=== PATIENT | female | born 1965 | race Caucasian/White ===

== ENCOUNTER → 2018-04-16 | Outpatient (CLI) | payer OTHER ==
[~2018-04-16] MED LIST: ASPIRIN325 PO; AUGMENTIN 875-1 EACH PO; BENADRYL25 MG PO; CIMETIDINE800 MG PO; CLARITIN10 MG PO; COLACE100 MG PO; ESTRACE0.5 MG PO; FLOMAX0.4 MG PO; FLONASE 0.05%50 MCG NASAL; HEARTBURN RELI200 MG PO; IMITREX 50 MG T50 MG PO; MAXALT MLT ODT10 M1 PO; METAMUCIL1 EAC1 PO; MIRALAX17 G1 PO; MOBIC15 MG PO; NORCO 5-325 TA1 EACH PO; ONDANSETRON HCL4 M2 PO; PROVERA2.5 MG PO; SINGULAIR 10 MG10 M1 PO; TRAMADOL 50 MG50 MG PO; TYLENOL325 MG PO; XARELTO10 MG PO
[2018-04-16 11:06] LABS: ABSOLUTE BASOPHILS 0.1 thou/uL (0.0-0.2); ABSOLUTE EOSINOPHILS 0.2 thou/uL (0.0-0.7); ABSOLUTE LYMPHOCYTES 2.4 thou/uL (0.8-5.3); ABSOLUTE MONOCYTES 0.4 thou/uL (0.0-1.2); ABSOLUTE NEUTROPHILS 3.4 thou/uL (1.6-8.1); BASOPHILS 1.7 %; EOSINOPHILS 3.2 %; HEMATOCRIT 40.9 % (37.0-47.0); HEMOGLOBIN 13.3 gm/dL (12.0-15.0); MCH 29.4 pg (26.0-34.0); MCHC 32.6 g/dL (28.0-37.0); MCV 90.1 fL (80.0-100.0); MONOCYTES 5.8 %; MPV 8.1 fl. (7.2-11.1); NUCLEATED RBCS 0 /100WBC; PLATELET COUNT* 268 thou/uL (150-400); POLYS 52.3 %; RBC 4.53 mil/uL (4.20-5.00); RDW-CV 12.9 % (10.5-14.5); WBC 6.6 thou/uL (4.0-11.0)
[2018-04-16 11:15] LABS: ALBUMIN 3.9 g/dL (3.4-5.0); ALKALINE PHOSPHATASE 67 U/L (46-116); ANION GAP 5 mmol/L (7-16); BUN 20 mg/dL (7-18); CALCIUM 8.8 mg/dL (8.5-10.1); CHLORIDE 105 mmol/L (98-107); CHOLESTEROL 165 mg/dL (<200); CO2 30 mmol/L (21-32); CREATININE 0.7 mg/dL (0.6-1.3); GLUCOSE 89 mg/dL (70-99); HDL CHOLESTEROL 62 mg/dL (>40); LDL CHOLESTEROL 89 mg/dL (<100); POTASSIUM 4.1 mmol/L (3.5-5.1); SGOT 13 U/L (15-37); SGPT 25 U/L (30-65); SODIUM 140 mmol/L (136-145); TC:HDL 2.7 Ratio (Not establshd); TOTAL BILIRUBIN 0.5 mg/dL (<0.1-1.0); TOTAL PROTEIN 7.4 g/dL (6.4-8.2); TRIGLYCERIDE 70 mg/dL (<150); VLDL 14 mg/dL (<40)
[2018-04-16 11:17] LABS: SERUM ASSESSMENT Clear
== END ==
LOC: M.LAB 10:41
PROVIDERS: Family Medicine
DX: E55.9 Vitamin D deficiency, unspecified (principal)

== ENCOUNTER → 2018-04-23 | Outpatient (CLI) | payer OTHER | LOC: M.RAD 13:40 | DX: M85.89 Other specified disorders of bone density and structure, multiple sites (principal); E28.39 Other primary ovarian failure; R31.9 Hematuria, unspecified; M54.5 Low back pain; Z78.0 Asymptomatic menopausal state ==

== ENCOUNTER → 2018-07-27 | Outpatient (CLI) | payer OTHER | LOC: M.RAD 13:16 | DX: Z12.31 Encounter for screening mammogram for malignant neoplasm of breast (principal); M19.90 Unspecified osteoarthritis, unspecified site; G43.909 Migraine, unspecified, not intractable, without status migrainosus ==

== ENCOUNTER 2018-08-16 09:59 | Emergency (ER) | payer OTHER ==
[~2018-08-16] VITALS: Ht 152.4 cm; Wt 63.5 kg
[~2018-08-16 09:59] MED LIST changes: -AUGMENTIN 875-1 EACH PO; -FLONASE 0.05%50 MCG NASAL; -HEARTBURN RELI200 MG PO; -ONDANSETRON HCL4 M2 PO; -SINGULAIR 10 MG10 M1 PO
[2018-08-16] MEDS ORDERED: SINGULAIR 10 MG10 M1 PO ×2 (10:20→10:24)
[2018-08-16] MEDS ORDERED: HEARTBURN RELI200 MG PO (10:25)
[2018-08-16] MEDS ORDERED: FLONASE 0.05%50 MCG NASAL (10:25)
[2018-08-16] MEDS ORDERED: ONDANSETRON HCL4 M2 PO (11:37)
[2018-08-16] MEDS ORDERED: TRAMADOL 50 MG50 MG PO (11:37)
[2018-08-16] MEDS ORDERED: AUGMENTIN 875-1 EACH PO (11:37)
[2018-08-16 12:05] VITALS: BP 102/31
== END 2018-08-16 12:11 | disposition home or self-care (01) ==
LOC: M.ERS 09:59
DX: J01.00 Acute maxillary sinusitis, unspecified (principal); Z88.1 Allergy status to other antibiotic agents; Z88.5 Allergy status to narcotic agent

== ENCOUNTER → 2019-08-20 | Outpatient (CLI) | payer OTHER ==
[~2019-08-20] MED LIST changes: +AUGMENTIN 875-1 EACH PO; +FLONASE 0.05%50 MCG NASAL; +HEARTBURN RELI200 MG PO; +ONDANSETRON HCL4 M2 PO; +SINGULAIR 10 MG10 M1 PO
== END ==
LOC: M.RAD 11:39
DX: M17.0 Bilateral primary osteoarthritis of knee (principal)

== ENCOUNTER → 2020-07-10 | Outpatient (CLI) | payer OTHER ==
[~2020-07-10] MED LIST changes: +CLEOCIN HCL300 MG PO; +LONG ACTING NA120 MG PO; +MEDROL DOSPAK21 TA1 PO; +PROAIR HFA8.5 GM INH; +TESSALON PERLE100 MG PO
[2020-07-10 15:36] LABS: ABSOLUTE BASOPHILS 0.1 thou/uL (0.0-0.2); ABSOLUTE EOSINOPHILS 0.1 thou/uL (0.0-0.7); ABSOLUTE LYMPHOCYTES 3.2 thou/uL (0.8-5.3); ABSOLUTE MONOCYTES 0.6 thou/uL (0.0-1.2); ABSOLUTE NEUTROPHILS 4.3 thou/uL (1.6-8.1); BASOPHILS 1.1 %; EOSINOPHILS 1.6 %; HEMATOCRIT 39.3 % (37.0-47.0); HEMOGLOBIN 13.5 gm/dL (12.0-15.0); LYMPHOCYTES 38.3 %; MCH 30.4 pg (26.0-34.0); MCHC 34.4 g/dL (28.0-37.0); MCV 88.6 fL (80.0-100.0); MONOCYTES 7.6 %; MPV 7.2 fl. (7.2-11.1); NUCLEATED RBCS 0 /100WBC; PLATELET COUNT* 291 thou/uL (150-400); POLYS 51.4 %; RBC 4.43 mil/uL (4.20-5.00); RDW-CV 13.3 % (10.5-14.5); WBC 8.3 thou/uL (4.0-11.0)
[2020-07-10 15:52] LABS: ALBUMIN 4.3 g/dL (3.4-5.0); ALKALINE PHOSPHATASE 77 U/L (46-116); ANION GAP 7 mmol/L (7-16); BUN 21 mg/dL (7-18); CALCIUM 8.9 mg/dL (8.5-10.1); CHLORIDE 101 mmol/L (98-107); CHOLESTEROL 197 mg/dL (<200); CO2 31 mmol/L (21-32); CREATININE 0.9 mg/dL (0.6-1.3); GLUCOSE 84 mg/dL (70-99); HDL CHOLESTEROL 65 mg/dL (>40); LDL CHOLESTEROL 113 mg/dL (<100); POTASSIUM 3.6 mmol/L (3.5-5.1); SERUM ASSESSMENT Clear; SGOT 18 U/L (15-37); SGPT 34 U/L (30-65); SODIUM 139 mmol/L (136-145); TOTAL BILIRUBIN 0.3 mg/dL (<0.1-1.0); TOTAL PROTEIN 7.8 g/dL (6.4-8.2); TRIGLYCERIDE 99 mg/dL (<150); VLDL 20 mg/dL (<40)
== END ==
LOC: M.RAD 14:59
PROVIDERS: ATTEND Family Medicine
DX: Z12.31 Encounter for screening mammogram for malignant neoplasm of breast (principal); Z01.419 Encounter for gynecological examination (general) (routine) without abnormal findings; E55.9 Vitamin D deficiency, unspecified

== ENCOUNTER → 2021-03-02 | Outpatient (CLI) | payer OTHER | LOC: M.RAD 10:45 | PROVIDERS: ATTEND Family Medicine | DX: M25.551 Pain in right hip (principal) ==